=== PATIENT | female | born 1945 | race Two or more races ===

== ENCOUNTER 2021-08-13 11:40 | Outpatient (REF) | payer MEDICARE, MEDICAID, SELFPAY ==
--- NOTE | ~2021-08-13 | XR_ITS ---
EXAMINATION: XR KNEE, RIGHT CLINICAL INFORMATION: Knee pain COMPARISON: Previous x-ray most recent August 2019 TECHNIQUE: Four views of the right knee. FINDINGS: There is varus angulation. There is slight medial subluxation of the distal femur with respect to the proximal tibia. No fracture or dislocation is seen. There are degenerative changes at the patellofemoral and medial femoral tibial joints. There is an osteophyte at the quadriceps tendon insertion to the patella. There is a joint effusion. There is evidence of atherosclerotic disease. XR/XR knee RT 4V IMPRESSION: Increasing arthritis.
== END 2021-08-13 11:41 | disposition home or self-care (01) ==
LOC: HO.XRAY 11:40
PROVIDERS: PCP Family Medicine; Visit Provider Family Medicine
DX: M25.561 Pain in right knee (principal)
CPT/HCPCS: 73564

== ENCOUNTER 2021-11-23 05:43 | Emergency (ER) | payer MEDICARE, MEDICAID, SELFPAY ==
--- NOTE | 2021-11-23 05:53 | ECG_ITS ---
Test Reason : CHEST PAIN Blood Pressure : / mmHG Vent. Rate : 058 BPM Atrial Rate : 058 BPM P-R Int : 170 ms QRS Dur : 082 ms QT Int : 488 ms P-R-T Axes : 056 -39 -24 degrees QTc Int : 479 ms Sinus bradycardia Left axis deviation Anterolateral infarct , possibly acute ACUTE [place] / STEMI Abnormal ECG No previous ECGs available Referred By: Generic ED Physician Electronically Signed By:ARIAN RYDER MD
[2021-11-23] MEDS: Ticagrelor 90 MG TABLET 180 MG PO (06:09)
[2021-11-23] MEDS: Aspirin 81 MG TAB.CHEW 324 MG PO (06:09)
[2021-11-23 06:10] VITALS: BMI 33.3
--- NOTE | 2021-11-23 06:11 | ED.CHESTPAIN ---
HPI - Chest Pain General Chief Complaint: Chest Pain Stated Complaint: chest pain Time Seen by Provider: 11/23/21 06:09 History of Present Illness HPI narrative: Patient is a 76-year-old female with a history diabetes, hypertension, high cholesterol presented today with having chest pain shortness of breath diaphoresis since 03:00. Approximately 3 hours ago. The pain radiates to the arm. Associated with generalized malaise. No history of CT in the past. Positive history of smoking. No family history of coronary artery disease. No allergies. Vaccinated for COVID Related Data Allergies Allergy/AdvReac Type Severity Reaction Status Date / Time No Known Allergies Allergy Verified 11/23/21 06:09 Review of Systems Review of Systems: Positive chest pain going to the arm. Positive diaphoresis positive shortness of breath Yes all other systems are reviewed and are negative [facility] Past Medical History Attestation statement: The following information was validated with the patient. Physical Exam Vital Signs: Vital Signs: Last Vital Signs Temp 98.3 F 11/23/21 06:13 Pulse 59 11/23/21 06:18 Resp 14 11/23/21 06:19 BP 92/51 L 11/23/21 06:13 Pulse Ox 98 11/23/21 06:18 O2 Del Method 11/23/21 06:18 BMI result Body Mass Index 33.3 Appearance: Alert. Oriented X3. No acute distress. Eyes: Pupils equal, round and reactive to light. ENT: Pharynx normal. Neck: Normal inspection. Neck supple. No lymph nodes noted. No crepitus CVS: Normal heart rate and rhythm. Pulses normal. Normal S1 and S2 Respiratory: No respiratory distress. Breath sounds normal. No Wheezing. No rales Abdomen: Soft and nontender. No rigidity. No distention. good BS x4 Skin: Skin warm and dry. Normal skin color. Normal skin turgor. Extremities: No lower extremity edema. Neurovascular intact to all extremities. No Lacerations. No Rash Neuro: Oriented X 3. No motor deficit. No sensory deficit. Moving all extermities. No slurred speech MDM - Chest Pain MDM Narrative Medical decision making narrative: Patient's EKG showed a sinus pattern heart rate is 60. There is significant ST segment elevation over the septal and lateral leads. With reciprocal changes noted over the inferior leads. Consistent with possible LAD lesion. A STEMI alert was called immediately. Patient case discussed with her about the transfer to [facility] for emergent cardiac catheterization. Given Brilinta and aspirin. Patient being transferred to [facility] immediately. Case discussed with charcoal burner [employer] at [facility].(ximena) Lab Data Result diagrams: 11/23/21 06:13 11/23/21 06:13 Labs: Lab Results 11/23/21 Range/Units 06:13 WBC 7.7 (4.8-10.8) X10*3/uL RBC 4.62 (4.20-5.50) X10*6/uL Hgb 11.2 L (12.0-16.0) g/dl Hct 36.4 L (37.0-47.0) % MCV 78.8 L (80.0-98.0) fL MCH 24.2 L (27.0-33.0) pg MCHC 30.8 L (31.0-35.0) g/dl RDW 15.7 (11.0-16.0) % Plt Count 231 (160-400) X10*3/uL MPV 10.9 (9.4-12.3) fL Immature Gran % (Auto) 0.4 (0.0-0.4) % Neut % (Auto) 49.3 (45-73) % Lymph % (Auto) 37.2 (20-40) % Nobles % (Auto) 9.3 (2-11) % Eos % (Auto) 3.3 (0-4) % Baso % (Auto) 0.5 (0-2) % Lymph # (Auto) 2.9 (1.2-4.9) X10*3/uL Nobles # (Auto) 0.7 (0.1-1.2) X10*3/uL Eos # (Auto) 0.3 (0.0-0.4) X10*3/uL Baso # (Auto) 0.0 (0.0-0.2) X10*3/uL Abs Immat Gran (auto) 0.03 (0.00-0.03) X10*3/uL Absolute Neuts (auto) 3.8 (2.0-8.3) x10*3/uL Absolute Nucleated RBC 0.000 (0.0-0.012) X10*3/uL Nucleated RBC % (auto) 0.0 (0.0-0.2) /100WBC Critical Care Time Critical Care Time Critical Care Time: Yes Total Critical Care Time: 35 Attestation: I have personally provided 40 minutes of critical care time exclusive of time spent on separately billable procedures. Time includes review of lab data, radiology results, discussion with consultants, and monitoring for potential decompensation. Interventions were performed as documented above Discharge Plan Discharge Clinical Impression: ST elevation (STEMI) myocardial infarction Patient Disposition: [facility]
[2021-11-23 06:13] VITALS: BP 92/51; PULSE 58; RESP 15; TEMP 36.8; O2SAT 98; BMI 33.3
[2021-11-23] MEDS: Atorvastatin Calcium 80 MG TABLET PO (06:17)
[2021-11-23 06:18] VITALS: PULSE 59; O2SAT 98
[2021-11-23 06:18] LABS: MANUAL DIFF FLAG NO
[2021-11-23 06:19] VITALS: RESP 14
[2021-11-23] MEDS: Morphine Sulfate 2 MG/ML CARTRIDGE IVPUSH (06:19)
--- NOTE | 2021-11-23 06:19 | PC.NURSE ---
Pt arrived to [facility] triage via private vehicle, from car in . Pt awoke at 3 am from pain. Pt asked where her pain was, and she runs her hand along upper bilateral chest and points to left shoulder. Pt rates pain as 10/10 and reports that it radiates down left arm. Pt denies nausea, dyspnea or diaphoresis. Skin is slightly moist, while applying ekg leads. Pt awake and alert, able to answer all questions on her own. Pt is pale, but spo2 96% room air in triage. BP 92/44, HR 60 sinus juany, RR 18. Pt's oral mucosa dry, unable to obtain oral temp. Temporal not correct. 12 lead performed as a priority, and brought immediately back to MD. Pt brought to room 12 via .
[2021-11-23 06:20] LABS: Basophils Percent Auto 0.5 % (0-2); Eosinophils Absolute Auto 0.3 X10*3/uL (0.0-0.4); Eosinophils Percent Auto 3.3 % (0-4); Hematocrit 36.4 % (37.0-47.0); Hemoglobin 11.2 g/dl (12.0-16.0); Imm Gran Abs Auto 0.03 X10*3/uL (0.00-0.03); Imm Gran Pct Auto 0.4 % (0.0-0.4); Lymphocytes Absolute Auto 2.9 X10*3/uL (1.2-4.9); Lymphocytes Percent Auto 37.2 % (20-40); Mean Corpuscular HGB Conc 30.8 g/dl (31.0-35.0); Mean Corpuscular Hemoglobin 24.2 pg (27.0-33.0); Mean Corpuscular Volume 78.8 fL (80.0-98.0); Mean Platelet Volume 10.9 fL (9.4-12.3); Monocytes Absolute Auto 0.7 X10*3/uL (0.1-1.2); Monocytes Percent Auto 9.3 % (2-11); Neutrophils Absolute Auto 3.8 x10*3/uL (2.0-8.3); Neutrophils Percent Auto 49.3 % (45-73); Platelet Count 231 X10*3/uL (160-400); Red Blood Count 4.62 X10*6/uL (4.20-5.50); Red Cell Distribution Width 15.7 % (11.0-16.0); White Blood Count 7.7 X10*3/uL (4.8-10.8)
[2021-11-23] MEDS: Heparin Sodium,Porcine 5,000 UNIT/ML VIAL 5000 UNIT IVPUSH (06:21)
--- NOTE | 2021-11-23 06:21 | PC.NURSE ---
pt diaphoretic, weak able to answer questions, A&Ox3, c/o chest pressure
[2021-11-23 06:31] LABS: INTERNATIONAL NORM RATIO 0.9 (0.9-1.1); Prothrombin Time 10.4 SEC (10.0-13.1)
[2021-11-23 06:34] LABS: COVID-19 Test Negative (Negative); IDNOW Serial# 16C4AD1C
[2021-11-23 06:40] LABS: Troponin-I High Sensitivity 33.9 ng/L (<3.5-17.0)
[2021-11-23 06:45] LABS: Anion Gap 17 (12-20); Blood Urea Nitrogen 95 mg/dL (9-16); Calcium 9.6 mg/dL (8.4-10.2); Carbon Dioxide 26 mmol/L (22-29); Chloride 98 mmol/L (96-108); Creatinine Clr Calc Pharmacy 12.8; Estimated Glomerular Filt Rate 12; Glucose Random 293 mg/dL (60-115); Potassium 4.3 mmol/L (3.3-5.1); Sodium 137 mmol/L (135-145)
--- NOTE | 2021-11-23 06:49 | PC.NURSE ---
delay in obtaining 12 lead, another CP pain was in triage having a 12 lead performed at the time she arrived.
== END 2021-11-23 06:43 | disposition short-term general hospital (02) ==
PROVIDERS: Emergency Provider Emergency Medicine Emergency Medical Services; PCP Family Medicine
DX: I21.3 ST elevation (STEMI) myocardial infarction of unspecified site (principal); R07.89 Other chest pain; I10 Essential (primary) hypertension; R06.02 Shortness of breath; Z20.822 Contact with and (suspected) exposure to COVID-19; Z79.899 Other long term (current) drug therapy
CPT/HCPCS: 36415; 80048; 84484; 85025; 85610; 87635; 93005; 96374; 96375; 99285; J2270